=== PATIENT | female | born 1935 | race Caucasian/White ===

== ENCOUNTER 2018-11-10 21:14 | Observation (INO) | payer MEDICARE ==
[2018-11-10 21:15] VITALS: BMI 21.4
[2018-11-10] MEDS ORDERED: Sodium Chloride 0.9% 1,000 ML IV ONE (22:15)
--- NOTE | 2018-11-10 22:19 | C.PDOC ---
History Of Present Illness 82 year old female with PMHx of advanced dementia, baseline confused, is brought to the ED from Home by her family for evaluation of high fever and cough for the last few days. Family also reports patient fouls smelling urine. Patient recently started taking an antibiotic given by a family friend. state pt more confused than baseline Time Seen by Provider: 11/10/18 22:11 Chief Complaint (Nursing): Fever History Per: Family History/Exam Limitations: clinical condition Onset/Duration Of Symptoms: Days Current Symptoms Are (Timing): Still Present Associated Symptoms: Fever, Cough. denies: Sinus Drainage, Nasal Congestion Recent travel outside of the [place]: No Additional History Per: Family Past Medical History Reviewed: Historical Data, Nursing Documentation, Vital Signs Vital Signs: Last Vital Signs Temp 98.4 F 11/10/18 21:40 Pulse 66 11/10/18 21:40 Resp 16 11/10/18 21:40 BP 102/62 11/10/18 21:40 Pulse Ox 96 11/10/18 21:40 - Medical History PMH: Dementia ("BEING WORKED UP AT PRESENT TIME.") Denies: Chronic Kidney Disease Surgical History: No Surg Hx Family History: States: Unknown Family Hx - Social History Hx Alcohol Use: No Hx Substance Use: No - Immunization History Hx Tetanus Toxoid Vaccination: No Hx Influenza Vaccination: No Hx Pneumococcal Vaccination: No Review Of Systems Review Of Systems: ROS cannot be obtained secondary to pt's inabilty to answer questions. Physical Exam - Physical Exam Appears: Non-toxic, Confused (baseline) Skin: Normal Color, Warm, Dry Head: Atraumatic, Normacephalic Eye(s): bilateral: Normal Inspection Oral Mucosa: Moist Neck: Normal ROM, Supple Chest: Symmetrical Cardiovascular: Rhythm Regular Respiratory: Decreased Breath Sounds (bilaterally and symmetrically), No Rales, No Rhonchi Gastrointestinal/Abdominal: Soft, No Tenderness, No Guarding, No Rebound Extremity: Normal ROM, No Tenderness, No Swelling Neurological/Psych: No Oriented x3 (Baseline confused due to advamce dementia) Gait: Unable To Assess ED Course And Treatment - Laboratory Results Result Diagrams: 11/10/18 22:45 11/10/18 22:45 O2 Sat by Pulse Oximetry: 96 (ON RA) Pulse Ox Interpretation: Normal Medical Decision Making Medical Decision Making: ro pna/uti Plan: * VBG * EKG * Labs * CXR * IV fluids * UA ekg nsr 62 casde discussed with pmd. will obs, given ams and high fever at home, r/o bactermia, pna, uti./ Disposition - Disposition Disposition: HOSPITALIZED Disposition Time: 09:00 Condition: STABLE - Clinical Impression Clinical Impression: Fever, Altered mental status - Scribe Statement The provider has reviewed the documentation as recorded by the Scribe Bryn Dale All medical record entries made by the Scribe were at my direction and personally dictated by me. I have reviewed the chart and agree that the record accurately reflects my personal performance of the history, physical exam, medical decision making, and the department course for this patient. I have also personally directed, reviewed, and agree with the discharge instructions and disposition. Decision To Admit - . Bed Request Type: Regular Admitting Physician: Antonio Schmidt Patient Diagnosis: Fever, Altered mental status
[2018-11-10 22:48] LABS: BASO # 0.1 K/uL (0.0-0.2); BASO % 1.3 % (0.0-2.0); EOS # 0.2 K/uL (0.0-0.7); EOS % 3.7 % (0.0-4.0); HEMOGLOBIN 12.2 g/dL (11.0-16.0); LYMPH # 1.5 K/uL (1.0-4.3); LYMPH % 28.2 % (20.0-40.0); MEAN PLATELET VOLUME 8.2 fL (7.2-11.7); MONO # 0.6 K/uL (0.0-0.8); MONO % 11.3 % (0.0-10.0); NEUT % 55.5 % (50.0-75.0); NRBC % 0.1 % (0.0-2.0); RBC 3.82 Mil/uL (3.80-5.20); RED CELL DISTRIBUTION WIDTH 13.7 % (11.5-14.5); WHITE BLOOD COUNT 5.3 K/uL (4.8-10.8)
[2018-11-10] MEDS ORDERED: Sodium Chloride 0.9% 1,000 ML ONE (22:51)
[2018-11-10 22:53] LABS: VENOUS BLOOD GAS BASE EXCESS 6.4 mmol/L (0.0-2.0); VENOUS BLOOD GAS PCO2 58 mmHg (40-60); VENOUS BLOOD GAS PO2 22 mm/Hg (30-55); VENOUS BLOOD PH 7.37 (7.32-7.43)
[2018-11-10 22:56] LABS: INR 1.1; PROTHROMBIN TIME 11.9 SECONDS (9.7-12.2)
[2018-11-10 23:10] LABS: ALB/GLOB RATIO 1.4 (1.0-2.1); ALBUMIN 4.3 g/dL (3.5-5.0); ALT/SGPT 25 U/L (9-52); AST/SGOT 34 U/L (14-36); BLOOD UREA NITROGEN 15 mg/dL (7-17); CALCIUM 8.9 mg/dl (8.6-10.4); GFR NON-AFRICAN AMERICAN > 60
[2018-11-10] MEDS ORDERED: Azithromycin 500 MG in Sodium Chloride 0.9% 250 ML IVPB STA (23:19)
[2018-11-10 23:54] LABS: SQUAMOUS EPITHIAL 2 /hpf (0-5); URINE BACTERIA MOD (<OCC); URINE BILIRUBIN NEGATIVE (NEGATIVE); URINE BLOOD NEGATIVE (NEGATIVE); URINE CLARITY Hazy (Clear); URINE COLOR Yellow (YELLOW); URINE GLUCOSE (UA) NORMAL (Normal); URINE LEUKOCYTE ESTERASE TRACE Leu/uL (Negative); URINE PROTEIN NEGATIVE (NEGATIVE); URINE UROBILINOGEN NORMAL mg/dL (0.2-1.0)
[2018-11-11] MEDS ORDERED: Azithromycin 500mg/250ML NS 500 MG/250 ML BAG IVPB ONE (00:05)
[2018-11-11] MEDS ORDERED: cefTRIAXone IV 1 gm in Dextros 50 ML IVPB SCH ×2 (00:32→10:00)
[2018-11-11] MEDS ORDERED: cefTRIAXone IV 1 gm in Dextros 50 ML IVPB ONE (00:34)
--- NOTE | 2018-11-11 08:15 | CT ---
Date of service: 11/10/2018 PROCEDURE: CT HEAD WITHOUT CONTRAST. HISTORY: Altered mental status COMPARISON: None available. TECHNIQUE: Axial computed tomography images were obtained through the head/brain without intravenous contrast. Radiation dose: Total exam DLP = 791.59 mGy-cm. This CT exam was performed using one or more of the following dose reduction techniques: Automated exposure control, adjustment of the mA and/or kV according to patient size, and/or use of iterative reconstruction technique. FINDINGS: HEMORRHAGE: No intracranial hemorrhage. BRAIN: No mass effect or edema. Scattered focal lucencies in the subcortical and periventricular white matter suggestive for chronic microvascular ischemic change. Diffuse atrophy. Bilateral basal ganglia calcifications. VENTRICLES: Prominent ventricles likely related to atrophy. CALVARIUM: Unremarkable. PARANASAL SINUSES: Unremarkable as visualized. No significant inflammatory changes. MASTOID AIR CELLS: Unremarkable as visualized. No inflammatory changes. OTHER FINDINGS: Chronic deformity of the left frontal bone. IMPRESSION: No acute intracranial abnormality. Cerebral and cerebellar atrophy. Chronic microvascular ischemic changes. If symptoms persists, consider correlation with MRI. A preliminary report was generated at 1:18 a.m. on 11/11/[address] Saravanan Lawler from [facility].
--- NOTE | 2018-11-11 09:21 | CP.PCM.HP ---
History of Present Illness - History of Present Illness History of Present Illness: CC: Fever 82 y/o with Dementia. Patient has incresing cough, chest congestion x 4 days. She has fever on 11/09 up to 101.7. Patient was very lethargic and not talking, as such she was brought to ER Present on Admission - Present on Admission Any Indicators Present on Admission: Yes History of DVT/PE: No History of Uncontrolled Diabetes: No Urinary Catheter: No Decubitus Ulcer Present: No Review of Systems - Review of Systems Systems not reviewed;Unavailable: Acuity of Condition - Constitutional Constitutional: Chills, Daytime Sleepiness, Fever, Lethargy, Malaise, Weakness - EENT Eyes: absent: Discharge, Irritation, Loss of Vision Ears: Decreased Hearing. absent: Ear Discharge, Ear Pain, Dizziness Nose/Mouth/Throat: absent: Nasal Congestion, Nasal Trauma, Hoarsness, Lip Swelling, Odynophagia, Sore Throat, Tongue Swelling - Cardiovascular Cardiovascular: absent: Diaphoresis, Dyspnea, Edema, Palpitations, Pedal Edema, Syncope - Respiratory Respiratory: Cough, Chest Congestion, Excessive Mucous Production. absent: Dyspnea, Hemoptysis, Pain on Inspiration - Gastrointestinal Gastrointestinal: absent: Abdominal Pain, Bloating, Dysphagia, Heartburn, Nausea, Vomiting - Genitourinary Genitourinary: absent: Dysuria, Pyuria, Voiding Freq/Small Amts - Menstruation Menstruation: absent: Menses Variable - Musculoskeletal Musculoskeletal: Atrophy, Myalgias. absent: Abnormal Gait, Back Pain - Integumentary Integumentary: Dry Skin. absent: Changing Lesions, Hirsutism, Skin Pain - Neurological Neurological: absent: Dizziness, Numbness, Radicular Pain Past Patient History - Infectious Disease Hx of Infectious Diseases: None - Past Medical History & Family History Past Medical History?: Yes - Past Social History Smoking Status: Never Smoked - CARDIAC Hx Cardiac Disorders: No - PULMONARY Hx Respiratory Disorders: No - NEUROLOGICAL Hx Dementia: Yes ("BEING WORKED UP AT PRESENT TIME.") - HEENT Hx HEENT Problems: Yes Hx Cataracts: Yes (RIGHT EYE) - RENAL Hx Chronic Kidney Disease: No - ENDOCRINE/METABOLIC Hx Endocrine Disorders: No - HEMATOLOGICAL/ONCOLOGICAL Hx Blood Disorders: No - INTEGUMENTARY Hx Dermatological Problems: No - MUSCULOSKELETAL/RHEUMATOLOGICAL Hx Musculoskeletal Disorders: No - GASTROINTESTINAL Hx Gastrointestinal Disorders: No - GENITOURINARY/GYNECOLOGICAL Hx Genitourinary Disorders: No - PSYCHIATRIC Hx Substance Use: No - SURGICAL HISTORY Hx Surgeries: Yes Hx Section: Yes - ANESTHESIA Hx Anesthesia: Yes (FOR C-SECTIONS) Hx Anesthesia Reactions: No Hx Malignant Hyperthermia: No Meds Allergies/Adverse Reactions: Allergies Allergy/AdvReac Type Severity Reaction Status Date / Time No Known Allergies Allergy Verified 11/11/18 08:08 Physical Exam - Constitutional Appears: No Acute Distress - Eye Exam Eye Exam: Normal appearance - ENT Exam ENT Exam: Mucous Membranes Moist - Neck Exam Neck exam: Positive for: Full Rom. Negative for: Lymphadenopathy - Respiratory Exam Respiratory Exam: Decreased Breath Sounds. absent: Rales, Rhonchi, Wheezes - Cardiovascular Exam Cardiovascular Exam: REGULAR RHYTHM, +S1, +S2. absent: Gallop, JVD, Systolic Murmur - Extremities Exam Extremities exam: Positive for: full ROM, normal capillary refill. Negative for: calf tenderness, joint swelling, pedal edema - Skin Skin Exam: Dry ((+) Eczema), Rash Results - Vital Signs Recent Vital Signs: Last Vital Signs Temp 100.4 F H 11/11/18 07:52 Pulse 89 11/11/18 07:52 Resp 15 11/11/18 07:52 BP 116/76 11/11/18 07:52 Pulse Ox 97 11/11/18 07:52 - Labs Result Diagrams: 11/10/18 22:45 11/10/18 22:45 Labs: Laboratory Results - last 24 hr 11/10/18 11/10/18 11/10/18 22:24 22:45 22:45 WBC 5.3 RBC 3.82 Hgb 12.2 Hct 35.9 MCV 94.0 MCH 32.0 H MCHC 34.0 RDW 13.7 Plt Count 194 MPV 8.2 Neut % (Auto) 55.5 Lymph % (Auto) 28.2 [place] % (Auto) 11.3 H Eos % (Auto) 3.7 Baso % (Auto) 1.3 Neut # (Auto) 3.0 Lymph # (Auto) 1.5 [place] # (Auto) 0.6 Eos # (Auto) 0.2 Baso # (Auto) 0.1 PT 11.9 INR 1.1 APTT 37 H pO2 VBG pH VBG pCO2 VBG HCO3 VBG Total CO2 VBG O2 Sat (Calc) VBG Base Excess VBG Potassium Glucose Lactate Sodium Potassium Chloride Carbon Dioxide Anion Gap BUN Creatinine Est GFR ( Amer) Est GFR (Non-Af Amer) Random Glucose Calcium Total Bilirubin AST ALT Alkaline Phosphatase Troponin I Total Protein Albumin Globulin Albumin/Globulin Ratio Venous Blood Potassium Urine Color Urine Clarity Urine pH Ur Specific [place] Urine Protein Urine Glucose (UA) Urine Ketones Urine Blood Urine Nitrate Urine Bilirubin Urine Urobilinogen Ur Leukocyte Esterase Urine WBC (Auto) Urine RBC (Auto) Ur Squamous Epith Cells Urine Bacteria Influenza Typ A,B (EIA) Negative for flu a/b 11/10/18 11/10/18 11/10/18 22:45 22:50 23:29 WBC RBC Hgb Hct MCV MCH MCHC RDW Plt Count MPV Neut % (Auto) Lymph % (Auto) [place] % (Auto) Eos % (Auto) Baso % (Auto) Neut # (Auto) Lymph # (Auto) [place] # (Auto) Eos # (Auto) Baso # (Auto) PT INR APTT pO2 22 L VBG pH 7.37 VBG pCO2 58 VBG HCO3 28.2 VBG Total CO2 35.3 H VBG O2 Sat (Calc) 33.7 L VBG Base Excess 6.4 H VBG Potassium 4.7 Glucose 84 Lactate 1.1 Sodium 134 137.0 Potassium 4.3 Chloride 97 L 103.0 Carbon Dioxide 30 Anion Gap 11 BUN 15 Creatinine 0.7 Est GFR ( Amer) > 60 Est GFR (Non-Af Amer) > 60 Random Glucose 92 D Calcium 8.9 Total Bilirubin 0.3 AST 34 ALT 25 Alkaline Phosphatase 75 Troponin I < 0.0120 Total Protein 7.5 Albumin 4.3 Globulin 3.1 Albumin/Globulin Ratio 1.4 Venous Blood Potassium 4.7 Urine Color Yellow Urine Clarity Hazy Urine pH 7.0 Ur Specific [place] 1.005 Urine Protein Negative Urine Glucose (UA) Normal Urine Ketones Negative Urine Blood Negative Urine Nitrate Negative Urine Bilirubin Negative Urine Urobilinogen Normal Ur Leukocyte Esterase Trace Urine WBC (Auto) 6 H Urine RBC (Auto) 3 Ur Squamous Epith Cells 2 Urine Bacteria Mod H Influenza Typ A,B (EIA) - EKG Data EKG Interpreted by: Myself Rate: Normal (left axis deviation) Assessment & Plan - Assessment and Plan (Free Text) Assessment: Altered mental status; Dementia Cont supportive care start Aricept/ Cont rocephin
--- NOTE | 2018-11-11 10:57 | RAD ---
Chest x-ray single frontal view HISTORY: Chest pain. COMPARISON: 03/21/2016 Findings: Hyperinflation suggestive for COPD and or emphysematous changes. Biapical pleural thickening with upper lobe granulomatous changes. Bilateral hilar prominence. Tortuous ectatic aorta. Cardiomegaly. Degenerative changes in the spine and shoulders. Impression: Hyperinflation suggestive for COPD and or emphysematous changes. Biapical pleural thickening with upper lobe granulomatous changes. Bilateral hilar prominence. Tortuous ectatic aorta. Cardiomegaly.
--- NOTE | 2018-11-11 12:10 | CARD ---
APPROVED REPORT Date of service: 11/10/2018 EKG Measurement Heart [id number] <Conclusion> Normal sinus rhythm Left axis deviation Abnormal ECG
[2018-11-11 16:42] VITALS: RESP 20
[2018-11-12 01:18] VITALS: BP 94/69; PULSE 86; TEMP 98.2
--- NOTE | 2018-11-12 10:00 | CP.PCM.PN ---
Subjective - Date & Time of Evaluation Date of Evaluation: 11/12/18 Time of Evaluation: 09:45 - Subjective Subjective: pt still with drawn; Follow simple commamd but her base line No more lethargy and walk w/ son on corridor yesterday No CP, dry cough, no SOB, no edema, no n/v; fair appetite. Objective - Vital Signs/Intake and Output Vital Signs (last 24 hours): Temp Pulse Resp BP Pulse Ox 98.2 F 86 20 94/69 L 95 11/12/18 00:00 11/12/18 00:00 11/12/18 00:00 11/12/18 00:00 11/12/18 05:00 Intake and Output: 11/12/18 11/12/18 06:59 18:59 Intake Total 600 Balance 600 - Medications Medications: Current Medications Acetaminophen (Tylenol 325mg Tab) 650 mg PO Q6 PRN PRN Reason: fever Last Admin: 11/11/18 08:02 Dose: 650 mg Azithromycin (Zithromax) 250 mg PO DAILY TOBI; Protocol Stop: 11/16/18 10:01 Azithromycin (Zithromax) 500 mg PO DAILY TOBI; Protocol Donepezil HCl (Aricept) 5 mg PO HS TOBI Last Admin: 11/11/18 21:43 Dose: 5 mg Heparin Sodium (Porcine) (Heparin) 5,000 units SC Q12 TOBI Last Admin: 11/11/18 21:44 Dose: 5,000 units Ceftriaxone Sodium 1 gm/ (Sodium Chloride) 100 mls @ 100 mls/hr IVPB DAILY TOBI; Protocol Last Admin: 11/11/18 10:36 Dose: 100 mls/hr Lorazepam (Ativan) 1 mg IM Q12 PRN PRN Reason: Agitation Pneumococcal Polyvalent Vaccine (Pneumovax 23 Vaccine) 0.5 ml IM .ONCE ONE Stop: 11/14/18 10:01 - Labs Labs: 11/10/18 22:45 11/10/18 22:45 PT 11.9 SECONDS (9.7-12.2) 11/10/18 22:45 INR 1.1 11/10/18 22:45 APTT 37 SECONDS (21-34) H 11/10/18 22:45 - Constitutional Appears: No Acute Distress - Eye Exam Eye Exam: Normal appearance - ENT Exam ENT Exam: Mucous Membranes Moist - Neck Exam Neck Exam: Full ROM. absent: Lymphadenopathy, Normal Inspection - Respiratory Exam Respiratory Exam: Decreased Breath Sounds. absent: Rales, Rhonchi - Cardiovascular Exam Cardiovascular Exam: REGULAR RHYTHM, +S1, +S2. absent: Gallop, JVD - Extremities Exam Extremities Exam: Full ROM, Normal Capillary Refill. absent: Calf Tenderness, Joint Swelling, Pedal Edema Assessment and Plan - Assessment and Plan (Free Text) Assessment: Acute Bronchitis w/ fever; Dementia Neg influenza & C/S; CXR - COPD, no infiltrate Await Psych but discuss w/ sibling - can be done in OPD Will Erx Aricept and Augmentin
[2018-11-12] MEDS ORDERED: Pneumococcal 23-Valent Vaccine IM ONE (11:45)
--- NOTE | 2018-11-12 18:27 | CON ---
DATE: 11/12/2018 CHIEF COMPLAINT AND REASON FOR CONSULTATION: The patient is referred by Dr. Schmidt, for evaluation, for dementia. The patient also was having some behavioral problems. HISTORY OF PRESENT ILLNESS: This is a case of an 82-year-old female [place] descent with history of dementia for many years. The patient is confused at baseline, collateral information taken from the family and from the chart. The patient was admitted as the patient was having high fever and cough and noted to have foul-smelling urine. The patient was given antibiotic, still confused. The patient referred for co-management as the patient taking Aricept for dementia, but was becoming more restless and agitated and not sleeping well. The patient noted in chart, was given Benadryl in the emergency room, 50 mg. Today, when seen she was seen with her family, still very confused, was started according to the daughter with Aricept 5 mg, but not agitated, still has trouble sleeping, but needs 24 hours care. The patient will be going home today. The family does not want her to go to the rehab and wants to take care at home. She is afebrile at this time. Review of her labs show the patient's WBC is 5.3. Her UA is negative. PAST PSYCHIATRIC HISTORY: History of advanced dementia. Chances mostly Alzheimer's type. DRUG/ALCOHOL HISTORY: Denies any. ALLERGIES: NO KNOWN ALLERGIES. PSYCHOSOCIAL HISTORY: The patient lives with her family. She used to be an artist. The patient is born and raised in [facility]. LIST OF MEDICATIONS: Aricept 5 mg at bedtime, Ativan 1 mg IM every 12 hours given, ceftriaxone, Zithromax. PHYSICAL EXAMINATION: VITAL SIGNS: Temperature is 98.2, pulse rate 86, blood pressure 94/69, respirations 20, and oxygen saturation is 95%. LABORATORY DATA: As stated UA is negative. WBC is 5.3, H and H is 12.2 and 35.9. BUN is 15 and creatinine 0.7. REVIEW OF SYSTEMS: GENERAL: The patient is alert, but confused. Oriented only to person. The patient speaks in Syriac. Seen with family members. SKIN: No diaphoresis. HEENT: No headache or dizziness. NECK: Supple. RESPIRATORY: No dyspnea. CARDIOVASCULAR: No chest pain. GASTROINTESTINAL: Appetite is variable. EXTREMITIES: Moving extremities. MUSCULOSKELETAL: Feels weak. NEUROLOGIC: Alert with periods of confusion according to the daughter. The patient needs assistance with ADL at home. The patient's family is trying to refer the patient to [facility] or to get some home care services, they do not want the patient to go to the [facility], they want to take care of her at home. MENTAL STATUS: Elderly female of [place]ian descent oriented x1, 5 feet and 1 inches, and weighs 105 pounds. Affect is restricted. Mood is dysphoric, but can be directable. Thought process is confused. Thought content, no overt psychosis. No suicidal or homicidal ideation. Attention and memory seem to be limited. Insight and judgment is limited. Impulse control is guarded at this time. IMPRESSION: History of delirium as well as dementia with mood changes, most probably Alzheimer's type. PLAN AND RECOMMENDATIONS: The patient's meds reviewed. Continue Aricept 5 mg at bedtime. Family instructed to monitor p.o. intake. The patient does not need Ativan p.r.n. at this time. She is manageable, but advised not to give patient Benadryl. Benadryl being on very anticholinergic medicine and caused more confusion. The patient especially with known history of dementia. The patient may take melatonin p.r.n. at night about 3 to 5 mg to help her sleep. The patient was advised also to go to day program probably to [facility] or to family instructed to apply for Medicaid, so the patient can get some extra home care services at home. I discussed with them, if they can followup as an outpatient, the patient benefit from Namenda and Aricept combination, but for now we will continue the Aricept 5 mg p.o. at bedtime and see the patient can tolerate, once the patient is able to tolerate the Aricept, we can add the Namenda. The patient advised to follow up the office as an outpatient for her dementia at this time. Tomás Villanueva MD [facility]
[2018-11-13 09:15] VITALS: O2SAT 96
== END 2018-11-12 15:16 | disposition home or self-care (01) ==
LOC: C.ER 21:14 → C.9E 11-11 01:05 → C.3T 11-11 14:31
PROVIDERS: ADMIT Internal Medicine; ATTEND Internal Medicine
DX: R41.82 Altered mental status, unspecified (principal); F02.80 Dementia in other diseases classified elsewhere, unspecified severity, without behavioral disturbance, psychotic disturbance, mood disturbance, and anxiety; J20.9 Acute bronchitis, unspecified; J44.0 Chronic obstructive pulmonary disease with (acute) lower respiratory infection; Z79.899 Other long term (current) drug therapy
CPT/HCPCS: 36415; 70450; 71045; 80053; 81001; 82803; 84443; 84484; 85025; 85610; 85730; 87040; 87804; 93005; 96360; 96365; 96372; 97116; 97162; 99285; G0378; G8978; G8979; J0456; J0696; J1644; J7030; J7050